=== PATIENT | male | born 2000 | race Caucasian/White ===

== ENCOUNTER 2021-01-27 15:36 | Emergency (ER) | payer SELFPAY ==
[~2021-01-27] VITALS: Ht 172.7 cm; Wt 102.0 kg
[2021-01-27] MEDS ORDERED: IV NORMAL SALINE 1000ML BAG 1,000 ML IV SCH (16:30)
[2021-01-27] MEDS ORDERED: ONDANSETRON PF 4 MG/2 ML VIAL. IVP ONE (16:30)
[2021-01-27 17:06] LABS: BASO # 0.1 x10^3/uL (0.0-0.2); BASO % 1 % (0-3); EOS # 0.1 x10^3/uL (0.0-0.7); EOS % 1 % (0-3); HEMATOCRIT 46.4 % (39.0-53.0); LYMPH % 26 % (24-48); MEAN CORPUSCULAR HEMOGLOBIN 29 pg (25-35); MEAN CORPUSCULAR HGB CONC 35 g/dL (31-37); MEAN CORPUSCULAR VOLUME 84 fL (79-100); MONO # 0.6 x10^3/uL (0.0-1.1); MONO % 8 % (0-9); NEUT % 64 % (31-73); PLATELET COUNT 227 x10^3/uL (140-400); RED BLOOD COUNT 5.55 x10^6/uL (4.30-5.70); RED CELL DISTRIBUTION WIDTH 12.7 % (11.5-14.5); WHITE BLOOD COUNT 7.8 x10^3/uL (4.0-11.0)
--- NOTE | 2021-01-27 17:11 | PHYS DOC ---
Past Medical History Past Medical History: No Pertinent History Past Surgical History: No Surgical History Smoking Status: Never Smoker Alcohol Use: Occasionally General Adult EDM: Chief Complaint: NAUSEA/VOMITING/DIARRHEA HPI: HPI: Patient is a 21 year old male who presents with patient states on January 19 he began feeling lightheaded and overheated and had a syncopal episode. He states he went home and drink some fluid and then went to bed. He states since then he has been able to keep down some fluids but not much food. Patient states since then he will get really hot at the trigger finger and on MR he feels like he is going to pass out. He states that he still feels very nauseated right now. He states he has generalized body weakness. He states at some point he will have some chest pain with shortness of air but it comes and goes. He states he does have anxiety. He states that when all this for started in December he did run a fever of 102 one time. He has not checked since then. Patient states he has not smoked any marijuana for the last 2 months. States he has not drink any alcohol since [facility]. He states that he is having diarrhea stools that are black sludgelike. Patient states he drank some anat lorrie today and has kept it down. Patient states he does not think he has been in around anyone that has been sick. Review of Systems: Review of Systems: Constitutional: + fever or chills. [] Eyes: Denies change in visual acuity. [] HENT: Denies nasal congestion or sore throat. [] Respiratory: Denies cough or + intermittent shortness of breath. [] Cardiovascular: + Intermittent chest pain or edema. [] GI: + abdominal pain, +nausea, +vomiting, denies bloody stools or +black diarrhea. [] : Denies dysuria. [] Musculoskeletal: Denies back pain or joint pain. + Generalized weakness [] Integument: Denies rash. [] Neurologic: Denies headache, focal weakness or sensory changes. + Syncopal episode. + Dizziness [] Endocrine: Denies polyuria or polydipsia. [] Lymphatic: Denies swollen glands. [] Psychiatric: Denies depression or +anxiety. [] Heart Score: C/O Chest Pain: Yes HEART Score for Chest Pain: HEART Score for Chest Pain Response (Comments) Value History Slighlty/Non-Suspicious 0 ECG Normal 0 Age < 45 0 Risk Factors 1 or 2 Risk Factors 1 Troponin < Normal Limit 0 Total 1 Risk Factors: Risk Factors: DM, Current or recent (<one month) smoker, HTN, HLP, family history of CAD, obesity. Risk Scores: Score 0 - 3: 2.5% MACE over next 6 weeks - Discharge Home Score 4 - 6: 20.3% MACE over next 6 weeks - Admit for Clinical Observation Score 7 - 10: 72.7% MACE over next 6 weeks - Early Invasive Strategies Current Medications: Current Medications Medications (Trade) Dose Ordered Sig/Leonie Start Time Stop Time Status Last Admin Dose Admin Ondansetron HCl (Zofran) 4 mg 1X ONCE 01/27/21 16:30 01/27/21 16:31 DC Sodium Chloride 1,000 ml @ 1,000 mls/hr Q1H 01/27/21 16:30 01/27/21 17:29 Allergies: Allergies: Allergies Coded Allergies Type Severity Reaction Last Updated Verified Penicillins Allergy Unknown Swelling 01/27/21 Yes Physical Exam: PE: Constitutional: Well developed, well nourished, no acute distress, non-toxic appearance. [] HENT: Normocephalic, atraumatic, bilateral external ears normal, oropharynx moist, no oral exudates, nose normal. [] Eyes: PERRLA, EOMI, conjunctiva normal, no discharge. [] Neck: Normal range of motion, no tenderness, supple, no stridor. [] Cardiovascular:Heart rate regular rhythm, no murmur [] Lungs & Thorax: Bilateral breath sounds clear to auscultation [] Abdomen: Bowel sounds normal, soft, no tenderness, no masses, no pulsatile ma sses. [] Skin: Warm, dry, no erythema, no rash. [] Back: No tenderness, no CVA tenderness. [] Extremities: No tenderness, no cyanosis, no clubbing, ROM intact, no edema. [] Neurologic: Alert and oriented X 3, normal motor function, normal sensory function, no focal deficits noted. [] Psychologic: Affect normal, judgement normal, mood normal. Normal physical exam [] Current Patient Data: Vital Signs: Vital Signs Date Time Temp Pulse Resp B/P (MAP) Pulse Ox O2 Delivery O2 Flow Rate FiO2 01/27/21 16:15 98.5 81 16 156/86 (109) 98 Room Air 98.5 EKG: EK and read by Dr. Mcintyre as sinus arrhythmia no STEMI Radiology/Procedures: Radiology/Procedures: [] Impression: [facility] [address] [place] [address] IMAGING REPORT Signed PATIENT: DAWNA ADAMSACCOUNT: [id number] : 2000 LOCATION: ER AGE: 21 SEX: M EXAM STATUS: REG ER ORD. PHYSICIAN: ATUL LOAIZA APRN REASON: syncopal episode, dizziness PROCEDURE: CT ANGIO CHEST W ABD PEL W/ Exam: CT of chest, abdomen and pelvis with contrast INDICATION: Syncopal episode, dizziness TECHNIQUE: Sequential axial images through the chest, abdomen and pelvis obtained following the administration of 100 mL of Omni 350 IV contrast. Sagittal and coronal reformatted images were reconstructed from the axial data and reviewed. 3-D reformatted images were reconstructed from the axial data and reviewed. Exposure: One or more of the following in the visualized dose reduction techniques were utilized for this examination: 1. Automated exposure control 2. Adjustment of the MA and/or KV according to patient size 3. Use of iterative of reconstructive technique Comparisons: None FINDINGS: Visualized portions of the thyroid are unremarkable. No enlarged mediastinal lymph nodes are identified. Heart size is normal. No pericardial effusion. Thoracic aorta has a normal course and caliber. Pulmonary artery is not enlarged. No pulmonary embolus identified within the main, lobar or segmental pulmonary arteries. Airways are patent. No consolidation or pneumothorax. No suspicious lung nodules. No pleural effusion or thickening. Mild diffuse hepatic steatosis. Spleen, pancreas, adrenals are unremarkable. Gal lbladder is mildly distended. No perinephric inflammation or hydronephrosis. No renal or ureteral calculi are identified. Bladder is partially distended and appears thin-walled. Prostate is not enlarged. Large and small bowel are unremarkable. Appendix is normal. No free intra- abdominal air or fluid. No obstruction. Abdominal aorta has a normal course and caliber. Abdominal vasculature is patent. No enlarged intra-abdominal lymph nodes are identified. No suspicious osseous lesions or acute fractures. IMPRESSION: 1. No pulmonary embolus identified within the main, lobar or segmental pulmonary arteries. 2. Mild diffuse hepatic steatosis. 3. Gallbladder is mildly distended. Correlate with symptomatology to determine the need for further evaluation with ultrasound. Electronically signed by: Billie Murphy MD (01/27/2021 6:01 PM) [facility] DICTATED and SIGNED BY: BILLIE MURPHY MD DATE: 01/27/21 [id number] [place] [address] IMAGING REPORT Signed PATIENT: DAWNA ADAMSACCOUNT: [id number] : 2000 LOCATION: ER AGE: 21 SEX: M EXAM STATUS: REG ER ORD. PHYSICIAN: ATUL LOAIZA APRN REASON: syncopal episode, dizziness PROCEDURE: CT HEAD WO CONTRAST Exam: CT head INDICATION: Syncopal episode, dizziness TECHNIQUE: Sequential axial images through the head were obtained without the administration of IV contrast. Exposure: One or more of the following in the visualized dose reduction techniques were utilized for this examination: 1. Automated exposure control 2. Adjustment of the MA and/or KV according to patient size 3. Use of iterative of reconstructive technique Comparisons: None FINDINGS: No focal parenchymal lesion or hemorrhage is identified. There is no midline shift or sulcal effacement. No acute vascular territory infarction is identified. Ott-white distinction is preserved. The ventricular system is within normal limits without compression hydrocephalus. The basal cisterns are well maintained. The visualized portions of the paranasal sinuses and mastoid air cells are well- pneumatized. No acute fractures. IMPRESSION: No acute intracranial abnormality. Electronically signed by: Billie Murphy MD (01/27/2021 5:48 PM) [facility] DICTATED and SIGNED BY: BILLIE MURPHY MD DATE: 01/27/21 [id number] [place] [address] IMAGING REPORT Signed PATIENT: DAWNA ADAMSACCOUNT: [id number] : 2000 LOCATION: ER AGE: 21 SEX: M EXAM STATUS: REG ER ORD. PHYSICIAN: ATUL LOAIZA APRN REASON: abnormal gallbladder on ct PROCEDURE: ABDOMEN LTD Ultrasound abdomen 01/27/2021. Reason for exam: CT showed distended gallbladder. The patient has a history of dizziness. Correlation is made with the CT done earlier in the day. FINDINGS: There were limited sonographic windows of the liver. There is increased echogenicity suggesting fatty infiltration. No focal abnormality is seen in the visualized portion. There is no obvious biliary ductal dilatation. Her graft the gallbladder shows moderate distention. No shadowing stones are seen. There may be some sludge. Gallbladder wall thickness is within normal limits. The right kidney shows normal cortical thickness and echogenicity without apparent mass or obstruction. It measures 1.3 cm in length. IMPRESSION: Distended gallbladder without visible stones. There may be some sludge present. Electronically signed by: Dennise Burkett Jr., MD (01/27/2021 7:02 PM) [facility] DICTATED and SIGNED BY: DENNISE BURKETT Jr, MD DATE: 01/27/21 [id number] Course & Med Decision Making: Course & Med Decision Making Pertinent Labs and Imaging studies reviewed. (See chart for details) COVID-19 CRITERIA: The patient was evaluated during the global COVID-19 pandemic, and that diagnosis was suspected/considered upon their initial presentation. Their evaluation, treatment and testing was consistent with current guidelines for patients who present with complaints or symptoms that may be related to COVID-19. See HPI. Alert and oriented x4. Ambulatory with a steady gait. Speaks in full complete sentences. Skin pink warm and dry. Abdomen soft and nontender. Lungs are clear to all station all lobes. Vital signs are within normal limits. Denies any pain at this time. He is nauseated. Denies any dizziness or headache at this time. Patient denies any chest pain or shortness of breath at this time. He states he did have some abdominal pain that felt like a cramping type pain this morning when the water from the shower hit him. IMPRESSION: 1. No pulmonary embolus identified within the main, lobar or segmental pulmonary arteries. 2. Mild diffuse hepatic steatosis. 3. Gallbladder is mildly distended. Correlate with symptomatology to determine the need for further evaluation with ultrasound. IMPRESSION: Distended gallbladder without visible stones. There may be some sludge present. Lab work is generally unremarkable. Patient's ALT is slightly elevated and bili is slightly elevated at 1.2. Patient is keeping fluid down. He has gotten 2 L of normal saline in the ED. Patient will get a consult to general surgery. He remains afebrile and vital signs are stable. He continues not to have any abdominal pain or tenderness. Urine does not show dehydration or infection. I have spoken with Dr Mathur about this patient and he is fine with the patient going home for follow up as out patient. [] Dragon Disclaimer: Dragon Disclaimer: This electronic medical record was generated, in whole or in part, using a voice recognition dictation system. Departure Departure Impression: Primary Impression: Abdominal pain Qualified Codes: R10.84 - Generalized abdominal pain Additional Impressions: Nausea & vomiting Qualified Codes: R11.2 - Nausea with vomiting, unspecified Person under investigation for COVID-19 Disposition: HOME / SELF CARE / HOMELESS Condition: STABLE Referrals: NO PCP (PCP) POLO OLIVAS MD Patient Instructions: Nausea and Vomiting Additional Instructions: Follow-up with your general surgeon soon as possible to have your gallbladder examined. Drink plenty of fluids. Slowly advance your diet. Take Tylenol for any pain. If you begin having severe abdominal pain and cannot keep down any fluids return to emergency room. You have been tested for or diagnosed with COVID-19. It is an infection caused by a new type of coronavirus. COVID-19 will cause cold-like or mild flu symptoms in most. It can cause more severe symptoms like problems breathing in some. There is no treatment for COVID-19. The body will clear the infection over time. Self-care will help to ease discomfort. Steps to Take: Self-Care Rest as needed. Healthy habits may help you feel better. Steps include: Choose healthy foods including fruits and vegetables. Drink water throughout the day. Get plenty of sleep each night. If you smoke, try to quit. It may ease breathing. Avoid alcohol. Keep Others Healthy The virus can spread to others. Droplets are released every time you sneeze or cough. The droplets can get into the mouth, nose, or eyes of people near you and lead to infection. To lower the chances of spreading COVID-19 to others: Stay at home until your doctor has said it is safe to leave. If you tested positive this will mean staying isolated until both of the following are true: At least 7 days have passed since the start of illness. You are free of fever for at least 72 hours without the use of medicine. During this time: - Avoid public areas, events, or transportation. Do not return to work or school until your doctor has said it is safe to do so. - Call ahead if you need to go to a medical center. Let them know you may have COVID-19. It will help them guide you where to go. They may also ask you to wear a facemask when you come to the office. - If you call for emergency medical services, let them know you may have COVID- 19. While at home: - Try to avoid close contact with others. Stay about 6 feet away. - If possible, spend most of your time in a separate room from others. - Use a face mask if you will be in close contact with others such as sharing a room or vehicle. - Have someone wipe down common surfaces in the home. Use household chain offbearer every day on areas like doorknobs, counters, or sinks. - Cough or sneeze into a tissue. Throw the tissue away right after use. If a tissue is not available, cough or sneeze into your elbow. - Wash your hands often. Wash them after sneezing or coughing. Use soap and sohan er and wash for at least 20 seconds. Alcohol based hand machine heddle cleaner can be used if soap and water is not available. - Do not prepare food for others. Avoid sharing personal items like forks, spoons, or toothbrushes. - Avoid close contact with pets while you are sick. There is no evidence of the virus passing to pets. This is a safety step until more is known about this virus. Isolation can be frustrating. Social interaction can help. Keep in touch with friends and family through phone and tech options. You can still interact with others in your home, just keep a safe distance of about 6 feet. Follow-up: Your doctors office will check in with you to see if there are any changes in your health. You may be asked to keep track of symptoms to share with them. They will also let you know when you are clear to be in public again. Problems to Look Out For: Contact your doctor if your recovery is not going as you expect. Get emergency care if you have problems such as: - Trouble breathing - Nonstop chest pain or pressure - Changes in awareness, confusion, or problems waking - Lips or face have bluish color - Worsening of symptoms If you think you have an emergency, call for emergency medical services right away. [facility] [place] Ondansetron (ONDANSETRON ODT) 4 Mg Tab.rapdis 1 TAB PO PRN Q6-8HRS, #16 TAB Prov: ATUL LOAIZA APRN 01/27/21 ATUL LOAIZA APRN January 27, 2021 17:11
[2021-01-27 17:14] LABS: CALCIUM 9.3 mg/dL (8.5-10.1); CREATININE 0.9 mg/dL (0.7-1.3); GFR 105.5; POTASSIUM 3.9 mmol/L (3.5-5.1)
[2021-01-27 17:20] LABS: ALBUMIN 4.7 g/dL (3.4-5.0); ALBUMIN/GLOBULIN RATIO 1.5 (1.0-1.7); TOTAL BILIRUBIN 1.2 mg/dL (0.2-1.0); TOTAL PROTEIN 7.9 g/dL (6.4-8.2)
[2021-01-27] MEDS ORDERED: IOHEXOL 350 MG/ML 100 ML VIAL. IV ONE (17:30)
[2021-01-27] MEDS ORDERED: CONTRAST GIVEN. MC PRN (17:30)
--- NOTE | 2021-01-27 17:50 | RAD ---
Exam: CT head INDICATION: Syncopal episode, dizziness TECHNIQUE: Sequential axial images through the head were obtained without the administration of IV co ntrast. Exposure: One or more of the following in the visualized dose reduction techniques were utilized for this examination: 1. Automated exposure control 2. Adjustment of the MA and/or KV according to patient size 3. Use of iterative of reconstructive technique Comparisons: None FINDINGS: No focal parenchymal lesion or hemorrhage is identified. There is no midline shift or sulcal effaceme nt. No acute vascular territory infarction is identified. Ott-white distinction is preserved. The ventricular system is within normal limits without compression hydrocephalus. The basal cisterns are well maintained. The visualized portions of the paranasal sinuses and mastoid air cells are well-pneumatized. No acute fractures. IMPRESSION: No acute intracranial abnormality. Electronically signed by: Billie Reza MD (01/27/2021 5:48 PM) [facility]
--- NOTE | 2021-01-27 18:04 | RAD ---
Exam: CT of chest, abdomen and pelvis with contrast INDICATION: Syncopal episode, dizziness TECHNIQUE: Sequential axial images through the chest, abdomen and pelvis obtained following the admin istration of 100 mL of Omni 350 IV contrast. Sagittal and coronal reformatted images were reconstruct ed from the axial data and reviewed. 3-D reformatted images were reconstructed from the axial data an d reviewed. Exposure: One or more of the following in the visualized dose reduction techniques were utilized for this examination: 1. Automated exposure control 2. Adjustment of the MA and/or KV according to patient size 3. Use of iterative of reconstructive technique Comparisons: None FINDINGS: Visualized portions of the thyroid are unremarkable. No enlarged mediastinal lymph nodes are identifi ed. Heart size is normal. No pericardial effusion. Thoracic aorta has a normal course and caliber. Pulmon kris artery is not enlarged. No pulmonary embolus identified within the main, lobar or segmental pulmo nary arteries. Airways are patent. No consolidation or pneumothorax. No suspicious lung nodules. No pleural effusion or thickening. Mild diffuse hepatic steatosis. Spleen, pancreas, adrenals are unremarkable. Gallbladder is mildly di stended. No perinephric inflammation or hydronephrosis. No renal or ureteral calculi are identified. Bladder is partially distended and appears thin-walled. Prostate is not enlarged. Large and small bowel are unremarkable. Appendix is normal. No free intra-abdominal air or fluid. No obstruction. Abdominal aorta has a normal course and caliber. Abdominal vasculature is patent. No enlarged intra-abdominal lymph nodes are identified. No suspicious osseous lesions or acute fractures. IMPRESSION: 1. No pulmonary embolus identified within the main, lobar or segmental pulmonary arteries. 2. Mild diffuse hepatic steatosis. 3. Gallbladder is mildly distended. Correlate with symptomatology to determine the need for further evaluation with ultrasound. Electronically signed by: Billie Reza MD (01/27/2021 6:01 PM) [facility]
[2021-01-27 18:46] VITALS: BP 115/56
--- NOTE | 2021-01-27 19:04 | RAD ---
Ultrasound abdomen 01/27/2021. Reason for exam: CT showed distended gallbladder. The patient has a history of dizziness. Correlation is made with the CT done earlier in the day. FINDINGS: There were limited sonographic windows of the liver. There is increased echogenicity sugges ting fatty infiltration. No focal abnormality is seen in the visualized portion. There is no obvious biliary ductal dilatation. Her graft the gallbladder shows moderate distention. No shadowing stones a re seen. There may be some sludge. Gallbladder wall thickness is within normal limits. The right kidney shows normal cortical thickness and echogenicity without apparent mass or obstructio n. It measures 1.3 cm in length. IMPRESSION: Distended gallbladder without visible stones. There may be some sludge present. Electronically signed by: Bharath Burkett Jr., MD (01/27/2021 7:02 PM) [facility]
--- NOTE | 2021-01-27 19:37 | EKG ---
[facility] [address] [place] [address] Test Date: 2021-01-27 Test Time: 17:23:44 Pat Name: DAWNA ADAMS Department: Room: Gender: M Traveling Phlebotomist: : 2000 Requested By: ATUL LOAIZA Order Number: [id number] Reading MD: Measurements Intervals Mcintosh Rate: 78 P: 32 IN: 172 QRS: 38 QRSD: 108 T: 16 QT: 356 QTc: 409 Interpretive Statements SINUS ARRHYTHMIA OTHERWISE NORMAL ECG RI6.02 No previous ECG available for comparison
[2021-01-27] MEDS ORDERED: IV NORMAL SALINE 1000ML BAG 1,000 ML IV ONE (20:15)
[2021-01-27 21:52] LABS: BILIRUBIN,URINE NEGATIVE (NEG); CLARITY,URINE CLEAR; COLOR,URINE YELLOW; NITRITE,URINE NEGATIVE (NEG); PH,URINE 5.5 (<5.0-8.0); PROTEIN,URINE NEGATIVE (NEG-TRACE); UROBILINOGEN,URINE 0.2 mg/dL (0.2 mg/dL)
[2021-01-27 22:03] LABS: BACTERIA,URINE 0 /HPF (0-FEW); RBC,URINE 0 /HPF (0-2); WBC,URINE RARE /HPF (0-4)
[2021-01-27 22:04] LABS: AMPHETAMINE/METHAMPHETAMINE NEG (NEG); BARBITURATES NEG (NEG); BENZODIAZEPINES NEG (NEG); CANNABINOIDS POS (NEG); COCAINE NEG (NEG); METHADONE NEG (NEG); OPIATES NEG (NEG); PHENCYCLIDINE NEG (NEG)
[2021-01-27] MEDS ORDERED: ONDA4TAB12 PO (22:08)
--- NOTE | 2021-01-28 13:27 | NUR ---
IP: Informed pt of negative covid test. Pt verbalized understanding.
== END 2021-01-27 22:33 | disposition home or self-care (01) ==
LOC: ER 15:36
DX: R10.84 Generalized abdominal pain (principal); Z20.822 Contact with and (suspected) exposure to COVID-19; R11.2 Nausea with vomiting, unspecified; Z88.0 Allergy status to penicillin
CPT/HCPCS: 36415; 70450; 71275; 74177; 76705; 80053; 80307; 81001; 83690; 84484; 85025; 85379; 93005; 96361; 96374; 99285; J2405; J7030; Q9967; U0003; U0005

== ENCOUNTER 2021-10-29 22:14 | Inpatient (IN) | payer SELFPAY ==
[~2021-10-29] VITALS: Ht 172.7 cm; Wt 98.0 kg
[~2021-10-29 22:14] MED LIST: ONDA4TAB12 PO
[2021-10-29] MEDS ORDERED: fentaNYL PF VIAL 100 MCG/2 ML VIAL IVP ONE (23:45)
[2021-10-29] MEDS ORDERED: IV NORMAL SALINE 1000ML BAG 1,000 ML IV ONE (23:45)
[2021-10-29] MEDS ORDERED: ONDANSETRON PF 4 MG/2 ML VIAL. IVP ONE (23:45)
--- NOTE | 2021-10-30 00:03 | RAD ---
EXAM: ULTRASOUND ABDOMEN LIMITED CLINICAL HISTORY: Right upper quadrant abdominal pain. Vomiting. COMPARISON: Abdomen ultrasound dated 11/17/2020 Findings: Bowel gas shadowing limits visualization of most of the pancreas, aorta and IVC. Increased liver echogenicity most likely representing advanced steatosis. Limited visualization of up per segments of the liver due to rib shadowing. No liver mass documented. Right hepatic lobe length i s 16.7 cm upper limits of normal. No gallstones or inflammatory changes of the gallbladder. There may be some mild layering gallbladder sludge. Prominent distention of the gallbladder diameter of 4.5 cm . No biliary ductal dilation. The common bile duct diameter is 5 mm which is normal. Right renal length 10.6 cm. No mass or hydronephrosis of the right kidney evident. Spleen and left ki dney were not evaluated. IMPRESSION: 1. Prominent distention of the gallbladder and mild sludge within the gallbladder. No gallstones evid ent. No inflammatory changes of the gallbladder evident. 2. No biliary ductal dilatation. 3. Increased liver echogenicity likely representing steatosis. Electronically signed by: Juice Larson MD (10/30/2021 12:00 AM) [facility]
[2021-10-30 00:25] LABS: BASO % 0 % (0-3); EOS % 0 % (0-3); HEMOGLOBIN 17.4 g/dL (13.0-17.5); LYMPH # 0.5 x10^3/uL (1.0-4.8); LYMPH % 4 % (24-48); MEAN CORPUSCULAR HEMOGLOBIN 29 pg (25-35); MEAN CORPUSCULAR HGB CONC 35 g/dL (31-37); MEAN CORPUSCULAR VOLUME 84 fL (79-100); MONO # 0.7 x10^3/uL (0.0-1.1); MONO % 5 % (0-9); NEUT # 12.7 x10^3/uL (1.8-7.7); NEUT % 91 % (31-73); PLATELET COUNT 236 x10^3/uL (140-400); RED BLOOD COUNT 5.97 x10^6/uL (4.30-5.70); RED CELL DISTRIBUTION WIDTH 13.2 % (11.5-14.5)
--- NOTE | 2021-10-30 00:31 | PHYS DOC ---
Past Medical History Past Medical History: No Pertinent History (ANTONLEDA LANCE CONSUMER AFFAIRS SPECIALIST) Past Surgical History: No Surgical History (LEDA BASS CONSUMER AFFAIRS SPECIALIST) Smoking Status: Never Smoker Alcohol Use: Heavy (EBONIELEDA Leos CONSUMER AFFAIRS SPECIALIST) General Adult EDM: Chief Complaint: ABDOMINAL PAIN HPI: HPI: Patient is a 21 year old male patient with history of gallbladder sludge diagnosed one year ago presenting today complaining of a sharp 23/10 right upper quadrant abdominal pain with nausea and vomiting, symptoms have been going on intermittently since this morning. Patient denies anything relieving the pain but states eating food makes pain worse, he states he has been trying to get help for this gallbladder sludge but he has no medical insurance and is unable to see any doctors. (EBONIELEDA Leos CONSUMER AFFAIRS SPECIALIST) Review of Systems: Review of Systems: Constitutional: Denies fever or chills. [] Eyes: Denies change in visual acuity. [] HENT: Denies nasal congestion or sore throat. [] Respiratory: Denies cough or shortness of breath. [] Cardiovascular: Denies chest pain or edema. [] GI: Reports right upper quadrant abdominal pain with nausea and vomiting, denies bloody stools or diarrhea. [] : Denies dysuria. [] Musculoskeletal: Denies back pain or joint pain. [] Integument: Denies rash. [] Neurologic: Denies headache, focal weakness or sensory changes. [] Psychiatric: Denies depression or anxiety. [] (LEDA BASS CONSUMER AFFAIRS SPECIALIST) Heart Score: C/O Chest Pain: N/A Risk Factors: Risk Factors: DM, Current or recent (<one month) smoker, HTN, HLP, family history of CAD, obesity. Risk Scores: Score 0 - 3: 2.5% MACE over next 6 weeks - Discharge Home Score 4 - 6: 20.3% MACE over next 6 weeks - Admit for Clinical Observation Score 7 - 10: 72.7% MACE over next 6 weeks - Early Invasive Strategies (LEDA BASS CONSUMER AFFAIRS SPECIALIST) Current Medications: Current Medications Medications (Trade) Dose Ordered Sig/Leonie Start Time Stop Time Status Last Admin Dose Admin Fentanyl Citrate (Fentanyl 2ml Vial) 50 mcg 1X ONCE 10/29/21 23:45 10/29/21 23:46 DC Ondansetron HCl (Zofran) 4 mg 1X ONCE 10/29/21 23:45 10/29/21 23:46 DC Sodium Chloride 1,000 ml @ 1,000 mls/hr 1X ONCE 10/29/21 23:45 10/30/21 00:44 (LEDA BASS CONSUMER AFFAIRS SPECIALIST) Allergies: Allergies: Allergies Coded Allergies Type Severity Reaction Last Updated Verified Penicillins Allergy Severe Swelling 10/29/21 Yes (LEDA BASS APRN) Physical Exam: PE: Constitutional: Well developed, well nourished, no acute distress, non-toxic appearance. [] HENT: Normocephalic, atraumatic, bilateral external ears normal, oropharynx moist, no oral exudates, nose normal. [] Eyes: PERRLA, EOMI, conjunctiva normal, no discharge. [] Neck: Normal range of motion, no tenderness, supple, no stridor. [] Cardiovascular:Heart rate regular rhythm, no murmur [] Lungs & Thorax: Bilateral breath sounds clear to auscultation [] Abdomen: Bowel sounds normal, soft, tenderness on palpation of the right upper quadrant with positive Chambers sign, no masses, no pulsatile masses. [] Skin: Warm, dry, no erythema, no rash. [] Back: No tenderness, no CVA tenderness. [] Extremities: No tenderness, no cyanosis, no clubbing, ROM intact, no edema. [] Neurologic: Alert and oriented X 3, normal motor function, normal sensory function, no focal deficits noted. [] Psychologic: Affect normal, judgement normal, mood normal. [] (LEDA BASS CONSUMER AFFAIRS SPECIALIST) Current Patient Data: Vital Signs: Vital Signs Date Time Temp Pulse Resp B/P (MAP) Pulse Ox O2 Delivery O2 Flow Rate FiO2 10/29/21 23:20 98.9 144 16 174/83 (113) 94 Room Air 98.9 (LEDA BASS CONSUMER AFFAIRS SPECIALIST) EKG: EKG: [] (LEDA BASS CONSUMER AFFAIRS SPECIALIST) Radiology/Procedures: Radiology/Procedures: []PROCEDURE: ABDOMEN LTD EXAM: ULTRASOUND ABDOMEN LIMITED CLINICAL HISTORY: Right upper quadrant abdominal pain. Vomiting. COMPARISON: Abdomen ultrasound dated 11/17/2020 Findings: Bowel gas shadowing limits visualization of most of the pancreas, aorta and IVC. Increased liver echogenicity most likely representing advanced steatosis. Limited visualization of upper segments of the liver due to rib shadowing. No liver mass documented. Right hepatic lobe length is 16.7 cm upper limits of normal. No gallstones or inflammatory changes of the gallbladder. There may be some mild layering gallbladder sludge. Prominent distention of the gallbladder diameter of 4.5 cm. No biliary ductal dilation. The common bile duct diameter is 5 mm which is normal. Right renal length 10.6 cm. No mass or hydronephrosis of the right kidney evident. Spleen and left kidney were not evaluated. IMPRESSION: 1. Prominent distention of the gallbladder and mild sludge within the gallbladder. No gallstones evident. No inflammatory changes of the gallbladder evident. 2. No biliary ductal dilatation. 3. Increased liver echogenicity likely representing steatosis. Electronically signed by: Maia Grider MD (10/30/2021 12:00 AM) [facility] [place] DICTATED and SIGNED BY: MAIA GRIDER MD DATE: 10/29/21 [id number] (LEDA BASS APRN) Course & Med Decision Making: Course & Med Decision Making Pertinent Labs and Imaging studies reviewed. (See chart for details) This is a 22-year-old male patient presented to the ED today complaining of right upper quadrant abdominal pain with nausea and vomiting, symptoms have been going on intermittently since this morning. Right upper quadrant ultrasound noted for prominent distention of the gallbladder and mild sludge within the gallbladder. No gallstones evident. No inflammatory changes of the gallbladder evident. No biliary ductal dilatation. Fatty liver. CBC with a WBC of 14.0. CMP with no acute findings. Dr. Domingo spoke to Dr. Attila Liu tx to Dr. Domingo (LEDA BASS APRN) Course & Med Decision Making I evaluated this patient with LUIS E Ang. Patient a 21-year-old male with history of previous study showing gallbladder sludge who presented with progressive right upper quadrant pain that is exacerbated by food intake. Pain became constant shortly before coming to the emergency department. Was initially tachycardic to the 140s, but has been afebrile. LFTs unremarkable. WBC 14 K. Ultrasound shows a largely dilated gallbladder with biliary sludge, without other findings of acute cholecystitis. On my exam he continues to have focal right upper quadrant pain after IV analgesia. Bedside ultrasound revealed a positive sonographic Chambers's. Given his constant pain, ultrasound findings, leukocytosis I am concerned that this may represent early cholecystitis versus severe biliary colic. I discussed the findings with Dr. Aiken, who suggested admission to the hospital service. Surgical consultation will take place in the morning. (GILA DOMINGO MD) Dragon Disclaimer: Dragon Disclaimer: This electronic medical record was generated, in whole or in part, using a voice recognition dictation system. (LEDA BASS APRN) Departure Departure Impression: Primary Impression: Right upper quadrant abdominal pain Additional Impressions: Gallbladder sludge Nausea and vomiting Qualified Codes: R11.2 - Nausea with vomiting, unspecified Disposition: ADMITTED INPATIENT Condition: STABLE Referrals: NO PCP (PCP) LEDA BASS APRN Oct 30, 2021 00:31 GILA DOMINGO MD Oct 30, 2021 03:23
[2021-10-30 00:35] LABS: CALCIUM 9.5 mg/dL (8.5-10.1); CREATININE 1.1 mg/dL (0.7-1.3); GFR 83.7; POTASSIUM 4.9 mmol/L (3.5-5.1)
[2021-10-30 00:41] LABS: ALBUMIN 4.4 g/dL (3.4-5.0); TOTAL BILIRUBIN 1.1 mg/dL (0.2-1.0); TOTAL PROTEIN 8.8 g/dL (6.4-8.2)
[2021-10-30 00:57] LABS: % BANDS 3 % (0-9); % LYMPHS 6 % (24-48); % MONOS 4 % (0-10); % SEGS 87 % (35-66); PLT ESTIMATE ADEQUATE (ADEQUATE); TOXIC VACUOLATION SLIGHT
[2021-10-30] MEDS ORDERED: ONDANSETRON PF 4 MG/2 ML VIAL. IVP PRN (01:15)
[2021-10-30] MEDS ORDERED: fentaNYL PF VIAL 100 MCG/2 ML VIAL IVP PRN (01:15)
[2021-10-30] MEDS ORDERED: MORPHINE SULFATE 4 MG/ML INJ. IVP PRN (01:30)
[2021-10-30] MEDS ORDERED: IV NORMAL SALINE 1000ML BAG 1,000 ML IV ONE ×2 (01:30→02:30)
[2021-10-30] MEDS: cefOXitin SODIUM IV Push 1 GM VIAL. IVP SCH ×4 (01:30→22:00)
[2021-10-30 04:00] VITALS: BP 144/63
[2021-10-30 07:00] VITALS: BP 138/70
[2021-10-30 08:35] LABS: BILIRUBIN,URINE NEGATIVE (NEG); CLARITY,URINE CLEAR; COLOR,URINE YELLOW; NITRITE,URINE NEGATIVE (NEG); PH,URINE 5.5 (<5.0-8.0); PROTEIN,URINE 30 mg/dL (NEG-TRACE); UROBILINOGEN,URINE 0.2 mg/dL (0.2 mg/dL)
[2021-10-30 08:43] LABS: AMPHETAMINE/METHAMPHETAMINE NEG (NEG); BARBITURATES NEG (NEG); BENZODIAZEPINES NEG (NEG); CANNABINOIDS NEG (NEG); COCAINE NEG (NEG); METHADONE NEG (NEG); OPIATES POS (NEG); PHENCYCLIDINE NEG (NEG)
[2021-10-30 08:45] LABS: BACTERIA,URINE FEW /HPF (0-FEW); RBC,URINE OCC /HPF (0-2); WBC,URINE OCC /HPF (0-4)
[2021-10-30] MEDS ORDERED: FLU VACC QUAD 21-22 (6MOS+) PF 0.5 ML SYRINGE. VAX IM ONE (09:00)
--- NOTE | 2021-10-30 12:20 | HP ---
DATE OF SERVICE: 10/30/2021 ADMIT DATE: 10/30/2021 CHIEF COMPLAINT: Abdominal pain. HISTORY OF PRESENT ILLNESS: The patient is a pleasant 21-year-old male who had abdominal pain for the past year. He apparently got diagnosed with gallbladder sludge, a year ago. The pain is rated as 7/10, it is in the right upper quadrant. I discussed the case with ER physician and we have admitted the patient. We are consulting GI and General Surgery. PAST MEDICAL HISTORY: Gallbladder sludge. ALLERGIES: PENICILLIN. FAMILY HISTORY: Diabetes. SOCIAL HISTORY: He does not drink, smoke or take drugs. He works at [employer]. MEDICATIONS: Reviewed. Please refer to the MRAD. REVIEW OF SYSTEMS: GENERAL: No history of weight change, weakness or fevers. SKIN: No bruising, hair changes or rashes. EYES: No blurred, double or loss of vision. NOSE AND THROAT: No history of nosebleeds, hoarseness or sore throat. HEART: No history of palpitations, chest pain or shortness of breath on exertion. LUNGS: Denies cough, hemoptysis, wheezing or shortness of breath. GASTROINTESTINAL: Denies changes in appetite, nausea, vomiting, diarrhea or constipation. GENITOURINARY: No history of frequency, urgency, hesitancy or nocturia. NEUROLOGIC: Denies history of numbness, tingling, tremor or weakness. PSYCHIATRIC: No history of panic, anxiety or depression. ENDOCRINE: No history of heat or cold intolerance, polyuria or polydipsia. EXTREMITIES: Denies muscle weakness, joint pain, pain on walking or stiffness. PHYSICAL EXAMINATION: VITALS: Within normal limits and are stable. GENERAL: No apparent distress. Alert and oriented. HEENT: Normal cephalic atraumatic, external auditory canals are patent EYES: Extraocular muscles are intact, pupils are equally round and reactive to light and accommodation MUSCULOSKELETAL: Well developed, well nourished, good range of motion ENDOCRINE: No thyromegaly was palpated LYMPHATICS: No cervical chain or axillary nodes were noted HEMATOPOIETIC: No bruising NECK: Supple, no JVD, no thyromegaly was noted. LUNGS: Clear to auscultation in all lung ray without rhonchi or wheezing. HEART: RRR, S1, S2 present. Peripheral pulses intact, no obvious murmurs were noted. ABDOMEN: Soft, nontender. Positive bowel sounds no organomegaly, normal bowel sounds. EXTREMITIES: Without any cyanosis, clubbing, or edema. Pedal pulses intact, Homans sign is negative. NEUROLOGIC: Normal speech, normal tone. A and O x 3, moves all extremities, no obvious focal deficits. PSYCHIATRIC: Normal affect, normal mood. Stable. SKIN: No ulcerations or rashes, good skin turgor, no jaundice. VASCULAR: Good capillary refill, neurovascular bundle appears to be intact. LABORATORY DATA: Liver function tests are normal. White count is a little high at 14. ASSESSMENT AND PLAN: Symptomatic gallbladder sludge. The patient has been admitted. We are giving him IV fluids, p.r.n. nausea meds. Consult General Surgery, consult GI. Home meds. DVT prophylaxis. Full code. SOCO/MIC/MARTI DR: SOCO/aayush TID: [id number]
--- NOTE | 2021-10-30 13:04 | RAD ---
Hepatobiliary scan. HISTORY: Distended gallbladder. A biliary scan was done using 5.5 mCi Choletec. Initial image of the liver is unremarkable. Gallbladd er activity is noted by 10 minutes. Following the 60 minute image the patient drank 8 ounces of boost . Further follow-up imaging was obtained. There was a 38 percent ejection fraction by 1 hour. IMPRESSION: 1. Normal visualization the gallbladder. 2. Low normal ejection fraction at 38 percent. Electronically signed by: Armando Caputo MD (10/30/2021 1:01 PM) [id number]
--- NOTE | 2021-10-30 14:22 | NUR ---
SW following. Discussed with RN, pt from home with family, room air, NPO, rapid COVID-19 negative (PCR pending). GI and Surgery following. Med Assist following for self pay status. SW will continue to follow.
[2021-10-30 15:00] VITALS: BP 122/60
[2021-10-30] MEDS: AA 4.25 %/CALCIUM/LYTES/D5W 1,000 ML IV SCH (16:43)
[2021-10-30 19:00] VITALS: BP 116/64
--- NOTE | 2021-10-30 20:31 | PDOC2 ---
CONSULT Date of Consult Date of Consult DATE: 10/30/21 TIME: 20:23 Reason for Consult Reason for Consult: RUQ abd pain Referring Physician Referring Physician: Dr. Woo Identification/Chief Complaint Chief Complaint RUQ abd pain Source Source: Chart review, Patient History of Present Illness Reason for Visit: 21 yo M with one year hx of RUQ abd pain, denies significant nausea. Notes loose stools. Past Medical History Cardiovascular: No pertinent hx Past Surgical History Past Surgical History: No pertinent history Family History Family History: No Significant Social History No ALCOHOL: heavy (pt reports quitting a week ago, reports multiple units per day) Current Problem List Problem List Problems Medical Problems: (1) Gallbladder sludge Status: Acute (2) Nausea and vomiting Status: Acute (3) Right upper quadrant abdominal pain Status: Acute Current Medications Current Medications Current Medications Fentanyl Citrate (Fentanyl 2ml Vial) 50 mcg 1X ONCE IVP Last administered on 10/30/21at 00:28; Start 10/29/21 at 23:45; Stop 10/29/21 at 23:46; Status DC Ondansetron HCl (Zofran) 4 mg 1X ONCE IVP Last administered on 10/30/21at 00:28; Start 10/29/21 at 23:45; Stop 10/29/21 at 23:46; Status DC Sodium Chloride 1,000 ml @ 1,000 mls/hr 1X ONCE IV Last administered on 10/30/21at 00:29; Start 10/29/21 at 23:45; Stop 10/30/21 at 00:44; Status DC Cefoxitin Sodium (Mefoxin) 1 gm Q8HRS IVP Last administered on 10/30/21at 13:46; Start 10/30/21 at 01:30 Morphine Sulfate (Morphine Sulfate) 4 mg PRN Q4HRS PRN IVP SEVERE PAIN 7-10 Last administered on 10/30/21at 04:32; Start 10/30/21 at 01:30 Ondansetron HCl (Zofran) 4 mg PRN Q4HRS PRN IVP NAUSEA/VOMITING 1ST CHOICE; Start 10/30/21 at 01:15 Sodium Chloride 1,000 ml @ 100 mls/hr 1X ONCE IV Last administered on 10/30/21at 01:30; Start 10/30/21 at 01:30; Stop 10/30/21 at 11:29; Status DC Fentanyl Citrate (Fentanyl 2ml Vial) 50 mcg PRN Q1HR PRN IVP SEVERE PAIN 7-10; Start 10/30/21 at 01:15; Stop 10/31/21 at 01:14 Sodium Chloride 1,000 ml @ 125 mls/hr 1X ONCE IV ; Start 10/30/21 at 02:30; Stop 10/30/21 at 10:29; Status DC Influenza Virus Vaccine Quadrival (Flulaval Quad [id number] Syringe) 0.5 ml ONCE ONCE VAX IM ; Start 10/30/21 at 09:00; Stop 10/30/21 at 09:01; Status DC Amino Acids/ Electrolytes/ Dextrose 1,000 ml @ 70 mls/hr [id number] IV Last administered on 10/30/21at 16:43; Start 10/30/21 at 17:30 Active Scripts Active Ondansetron Odt (Ondansetron) 4 Mg Tab.rapdis 1 Tab PO PRN Q6-8HRS Allergies Allergies: Coded Allergies: Penicillins (Verified Allergy, Severe, Swelling, 10/29/21) ROS Gastrointestinal: Yes Abdominal Pain, Yes Diarrhea Physical Exam General: Alert, Oriented X3, Cooperative, mild distress HEENT: Atraumatic Lungs: Normal air movement Abdomen: Soft, Other (TTP RUQ) Extremities: No clubbing, No cyanosis Skin: No rashes, No breakdown Neuro: Normal speech, Sensation intact Psych/Mental Status: Mental status NL, Mood NL Vitals VITALS Vital Signs Date Time Temp Pulse Resp B/P (MAP) Pulse Ox O2 Delivery O2 Flow Rate FiO2 10/30/21 15:00 98.4 97 20 122/60 (80) 98 Room Air 98.4 Labs Labs Laboratory Tests Test 10/30/21 00:20 10/30/21 05:40 10/30/21 08:15 10/30/21 09:30 White Blood Count 14.0 x10^3/uL (4.0-11.0) Red Blood Count 5.97 x10^6/uL (4.30-5.70) Hemoglobin 17.4 g/dL (13.0-17.5) Hematocrit 50.0 % (39.0-53.0) Mean Corpuscular Volume 84 fL (79-100) Mean Corpuscular Hemoglobin 29 pg (25-35) Mean Corpuscular Hemoglobin Concent 35 g/dL (31-37) Red Cell Distribution Width 13.2 % (11.5-14.5) Platelet Count 236 x10^3/uL (140-400) Neutrophils (%) (Auto) 91 % (31-73) Lymphocytes (%) (Auto) 4 % (24-48) Monocytes (%) (Auto) 5 % (0-9) Eosinophils (%) (Auto) 0 % (0-3) Basophils (%) (Auto) 0 % (0-3) Neutrophils # (Auto) 12.7 x10^3/uL (1.8-7.7) Lymphocytes # (Auto) 0.5 x10^3/uL (1.0-4.8) Monocytes # (Auto) 0.7 x10^3/uL (0.0-1.1) Eosinophils # (Auto) 0.0 x10^3/uL (0.0-0.7) Basophils # (Auto) 0.0 x10^3/uL (0.0-0.2) Segmented Neutrophils % 87 % (35-66) Band Neutrophils % 3 % (0-9) Lymphocytes % 6 % (24-48) Monocytes % 4 % (0-10) Toxic Vacuolation Slight Platelet Estimate Adequate (ADEQUATE) Sodium Level 143 mmol/L (136-145) Potassium Level 4.9 mmol/L (3.5-5.1) Chloride Level 103 mmol/L (98-107) Carbon Dioxide Level 26 mmol/L (21-32) Anion Gap 14 (6-14) Blood Urea Nitrogen 15 mg/dL (8-26) Creatinine 1.1 mg/dL (0.7-1.3) Estimated GFR (Cockcroft-Gault) 83.7 BUN/Creatinine Ratio 14 (6-20) Glucose Level 120 mg/dL (70-99) Calcium Level 9.5 mg/dL (8.5-10.1) Total Bilirubin 1.1 mg/dL (0.2-1.0) Aspartate Amino Transf (AST/SGOT) 20 U/L (15-37) Alanine Aminotransferase (ALT/SGPT) 55 U/L (16-63) Alkaline Phosphatase 71 U/L (46-116) Total Protein 8.8 g/dL (6.4-8.2) Albumin 4.4 g/dL (3.4-5.0) Albumin/Globulin Ratio 1.0 (1.0-1.7) Lipase 70 U/L (73-393) Ethyl Alcohol Level < 10 mg/dL (0-10) Lactic Acid Level 2.4 mmol/L (0.4-2.0) Urine Collection Type Unknown Urine Color Yellow Urine Clarity Clear Urine pH 5.5 (<5.0-8.0) Urine Specific Divide >=1.030 (1.000-1.030) Urine Protein 30 mg/dL (NEG-TRACE) Urine Glucose (UA) Negative mg/dL (NEG) Urine Ketones (Stick) Trace mg/dL (NEG) Urine Blood Negative (NEG) Urine Nitrite Negative (NEG) Urine Bilirubin Negative (NEG) Urine Urobilinogen Dipstick 0.2 mg/dL (0.2 mg/dL) Urine Leukocyte Esterase Negative (NEG) Urine RBC Occ /HPF (0-2) Urine WBC Occ /HPF (0-4) Urine Squamous Epithelial Cells Few /LPF Urine Bacteria Few /HPF (0-FEW) Urine Opiates Screen Pos (NEG) Urine Methadone Screen Neg (NEG) Urine Barbiturates Neg (NEG) Urine Phencyclidine Screen Neg (NEG) Urine Amphetamine/Methamphetamine Neg (NEG) Urine Benzodiazepines Screen Neg (NEG) Urine Cocaine Screen Neg (NEG) Urine Cannabinoids Screen Neg (NEG) Urine Ethyl Alcohol Neg (NEG) SARS-CoV-2 RNA (NEHEMIAH) Negative (Negative) SARS-CoV-2 Antigen (Rapid) Negative (NEGATIVE) Test 10/30/21 13:10 Lactic Acid Level 1.7 mmol/L (0.4-2.0) Laboratory Tests Test 10/30/21 00:20 10/30/21 05:40 10/30/21 08:15 10/30/21 09:30 White Blood Count 14.0 x10^3/uL (4.0-11.0) Red Blood Count 5.97 x10^6/uL (4.30-5.70) Hemoglobin 17.4 g/dL (13.0-17.5) Hematocrit 50.0 % (39.0-53.0) Mean Corpuscular Volume 84 fL (79-100) Mean Corpuscular Hemoglobin 29 pg (25-35) Mean Corpuscular Hemoglobin Concent 35 g/dL (31-37) Red Cell Distribution Width 13.2 % (11.5-14.5) Platelet Count 236 x10^3/uL (140-400) Neutrophils (%) (Auto) 91 % (31-73) Lymphocytes (%) (Auto) 4 % (24-48) Monocytes (%) (Auto) 5 % (0-9) Eosinophils (%) (Auto) 0 % (0-3) Basophils (%) (Auto) 0 % (0-3) Neutrophils # (Auto) 12.7 x10^3/uL (1.8-7.7) Lymphocytes # (Auto) 0.5 x10^3/uL (1.0-4.8) Monocytes # (Auto) 0.7 x10^3/uL (0.0-1.1) Eosinophils # (Auto) 0.0 x10^3/uL (0.0-0.7) Basophils # (Auto) 0.0 x10^3/uL (0.0-0.2) Segmented Neutrophils % 87 % (35-66) Band Neutrophils % 3 % (0-9) Lymphocytes % 6 % (24-48) Monocytes % 4 % (0-10) Toxic Vacuolation Slight Platelet Estimate Adequate (ADEQUATE) Sodium Level 143 mmol/L (136-145) Potassium Level 4.9 mmol/L (3.5-5.1) Chloride Level 103 mmol/L (98-107) Carbon Dioxide Level 26 mmol/L (21-32) Anion Gap 14 (6-14) Blood Urea Nitrogen 15 mg/dL (8-26) Creatinine 1.1 mg/dL (0.7-1.3) Estimated GFR (Cockcroft-Gault) 83.7 BUN/Creatinine Ratio 14 (6-20) Glucose Level 120 mg/dL (70-99) Calcium Level 9.5 mg/dL (8.5-10.1) Total Bilirubin 1.1 mg/dL (0.2-1.0) Aspartate Amino Transf (AST/SGOT) 20 U/L (15-37) Alanine Aminotransferase (ALT/SGPT) 55 U/L (16-63) Alkaline Phosphatase 71 U/L (46-116) Total Protein 8.8 g/dL (6.4-8.2) Albumin 4.4 g/dL (3.4-5.0) Albumin/Globulin Ratio 1.0 (1.0-1.7) Lipase 70 U/L (73-393) Ethyl Alcohol Level < 10 mg/dL (0-10) Lactic Acid Level 2.4 mmol/L (0.4-2.0) Urine Collection Type Unknown Urine Color Yellow Urine Clarity Clear Urine pH 5.5 (<5.0-8.0) Urine Specific Divide >=1.030 (1.000-1.030) Urine Protein 30 mg/dL (NEG-TRACE) Urine Glucose (UA) Negative mg/dL (NEG) Urine Ketones (Stick) Trace mg/dL (NEG) Urine Blood Negative (NEG) Urine Nitrite Negative (NEG) Urine Bilirubin Negative (NEG) Urine Urobilinogen Dipstick 0.2 mg/dL (0.2 mg/dL) Urine Leukocyte Esterase Negative (NEG) Urine RBC Occ /HPF (0-2) Urine WBC Occ /HPF (0-4) Urine Squamous Epithelial Cells Few /LPF Urine Bacteria Few /HPF (0-FEW) Urine Opiates Screen Pos (NEG) Urine Methadone Screen Neg (NEG) Urine Barbiturates Neg (NEG) Urine Phencyclidine Screen Neg (NEG) Urine Amphetamine/Methamphetamine Neg (NEG) Urine Benzodiazepines Screen Neg (NEG) Urine Cocaine Screen Neg (NEG) Urine Cannabinoids Screen Neg (NEG) Urine Ethyl Alcohol Neg (NEG) SARS-CoV-2 RNA (NEHEMIAH) Negative (Negative) SARS-CoV-2 Antigen (Rapid) Negative (NEGATIVE) Test 10/30/21 13:10 Lactic Acid Level 1.7 mmol/L (0.4-2.0) Images Images gallbladder distention and sludge Assessment/Plan Assessment/Plan cholecystitis pt appears improved with hydration and supportive care. significant tachycardia and elevated lactic acid inconsistent with biliary sludge alone concern for significant liver disease, given heavy etoh would favor etoh cessation prior to cholecystectomy will ask GI to evaluation. Thanks for consult! VERONICA FLORES MD Oct 30, 2021 20:31
[2021-10-30 23:00] VITALS: BP 123/63
[2021-10-31 03:00] VITALS: BP 127/75
[2021-10-31] MEDS: cefOXitin SODIUM IV Push 1 GM VIAL. IVP SCH ×2 (06:31→13:51)
[2021-10-31 07:00] VITALS: BP 138/72
[2021-10-31] MEDS: AA 4.25 %/CALCIUM/LYTES/D5W 1,000 ML IV SCH (07:23)
[2021-10-31 08:35] LABS: BASO % 1 % (0-3); EOS # 0.1 x10^3/uL (0.0-0.7); EOS % 3 % (0-3); HEMATOCRIT 44.4 % (39.0-53.0); HEMOGLOBIN 15.3 g/dL (13.0-17.5); LYMPH # 1.8 x10^3/uL (1.0-4.8); LYMPH % 33 % (24-48); MEAN CORPUSCULAR HEMOGLOBIN 29 pg (25-35); MEAN CORPUSCULAR HGB CONC 34 g/dL (31-37); MEAN CORPUSCULAR VOLUME 86 fL (79-100); MONO # 0.7 x10^3/uL (0.0-1.1); MONO % 13 % (0-9); NEUT # 2.8 x10^3/uL (1.8-7.7); NEUT % 52 % (31-73); PLATELET COUNT 199 x10^3/uL (140-400); RED BLOOD COUNT 5.19 x10^6/uL (4.30-5.70); WHITE BLOOD COUNT 5.5 x10^3/uL (4.0-11.0)
[2021-10-31 08:42] LABS: ALBUMIN 3.7 g/dL (3.4-5.0); ALBUMIN/GLOBULIN RATIO 0.9 (1.0-1.7); CALCIUM 8.9 mg/dL (8.5-10.1); CREATININE 0.8 mg/dL (0.7-1.3); GFR 120.9; POTASSIUM 3.6 mmol/L (3.5-5.1); TOTAL BILIRUBIN 0.7 mg/dL (0.2-1.0); TOTAL PROTEIN 7.7 g/dL (6.4-8.2)
--- NOTE | 2021-10-31 09:28 | PDOC2 ---
EDMUND MON 10/31/21 0928: GI CONSULT Date of Service: DATE: 10/31/21 TIME: 09:28 Reason For Consult: abdominal pain HPI: HPI: 21 y/o male w/ upper abdominal pain ("just pain") x 1.5 years intermittently. Worse x 2 months this time, and really bad after eating canned ravioli on Thursday - constant since then. Says was told in the past to see a surgeon re: GB sludge which he didn't do because he had to walk everywhere and no one would help him out. At first difficult to discern aggravating or alleviating factors, but eventually mentions lost 30 pounds in July because he "couldn't eat" due to pain. Since has been able to eat and has gained 16 pounds. Imaging as below w/ GB distention, GB sludge, GB EF 38%, and likely hepatic steatosis. Surgery saw, concern for liver disease w/ alcohol history, favors cholecystectomy after alcohol cessation. H/o heartburn, untreated - he also says he knows this isn't heartburn pain. No dysphagia, hematemesis, hematochezia, melena, or constipation. No previous EGD or colonoscopy. Gives h/o "non-alcoholic fatty liver disease." Denies pancreas and PUD history. Was drinking 1-2 "glasses" of liquor daily til about 1 week ago. LFTs and plt normal. PMH: PMH: depression/anxiety FH: Family History: Other (doesn't really know about family history) Social History: Smoke: No ALCOHOL: heavy (pt reports quitting a week ago, reports multiple units per day) ROS: GEN: Denies fevers, chills, sweats HEENT: Denies blurred vision, sore throat CV: Denies chest pain RESP: Denies shortness of air, cough GI: Per HPI : Denies hematuria, dysuria ENDO: +fluctuating NEURO: Denies confusion, dizziness MSK: Denies weakness, joint pain/swelling SKIN: Denies jaundice, pruritus Vitals: Vitals: Vital Signs Date Time Temp Pulse Resp B/P (MAP) Pulse Ox O2 Delivery O2 Flow Rate FiO2 10/31/21 07:25 Room Air 10/31/21 07:00 99.0 73 16 138/72 (94) 95 99.0 Labs: Labs: Laboratory Tests Test 10/30/21 09:30 10/30/21 13:10 10/31/21 06:35 SARS-CoV-2 RNA (NEHEMIAH) Negative (Negative) SARS-CoV-2 Antigen (Rapid) Negative (NEGATIVE) Lactic Acid Level 1.7 mmol/L (0.4-2.0) White Blood Count 5.5 x10^3/uL (4.0-11.0) Red Blood Count 5.19 x10^6/uL (4.30-5.70) Hemoglobin 15.3 g/dL (13.0-17.5) Hematocrit 44.4 % (39.0-53.0) Mean Corpuscular Volume 86 fL (79-100) Mean Corpuscular Hemoglobin 29 pg (25-35) Mean Corpuscular Hemoglobin Concent 34 g/dL (31-37) Red Cell Distribution Width 13.0 % (11.5-14.5) Platelet Count 199 x10^3/uL (140-400) Neutrophils (%) (Auto) 52 % (31-73) Lymphocytes (%) (Auto) 33 % (24-48) Monocytes (%) (Auto) 13 % (0-9) Eosinophils (%) (Auto) 3 % (0-3) Basophils (%) (Auto) 1 % (0-3) Neutrophils # (Auto) 2.8 x10^3/uL (1.8-7.7) Lymphocytes # (Auto) 1.8 x10^3/uL (1.0-4.8) Monocytes # (Auto) 0.7 x10^3/uL (0.0-1.1) Eosinophils # (Auto) 0.1 x10^3/uL (0.0-0.7) Basophils # (Auto) 0.0 x10^3/uL (0.0-0.2) Sodium Level 139 mmol/L (136-145) Potassium Level 3.6 mmol/L (3.5-5.1) Chloride Level 103 mmol/L (98-107) Carbon Dioxide Level 32 mmol/L (21-32) Anion Gap 4 (6-14) Blood Urea Nitrogen 16 mg/dL (8-26) Creatinine 0.8 mg/dL (0.7-1.3) Estimated GFR (Cockcroft-Gault) 120.9 BUN/Creatinine Ratio 20 (6-20) Glucose Level 83 mg/dL (70-99) Calcium Level 8.9 mg/dL (8.5-10.1) Total Bilirubin 0.7 mg/dL (0.2-1.0) Aspartate Amino Transf (AST/SGOT) 21 U/L (15-37) Alanine Aminotransferase (ALT/SGPT) 41 U/L (16-63) Alkaline Phosphatase 55 U/L (46-116) Total Protein 7.7 g/dL (6.4-8.2) Albumin 3.7 g/dL (3.4-5.0) Albumin/Globulin Ratio 0.9 (1.0-1.7) BLOOD CULTURE Preliminary NO GROWTH AFTER 1 DAY Allergies: Coded Allergies: Penicillins (Verified Allergy, Severe, Swelling, 10/29/21) Medications: Current Medications Medications (Trade) Dose Ordered Sig/Leonie Route PRN Reason Start Time Stop Time Status Last Admin Dose Admin Amino Acids/ Electrolytes/ Dextrose 1,000 ml @ 70 mls/hr [id number] IV 10/30/21 17:30 10/31/21 07:23 Imaging: Imaging: Abd US 10/29/21 IMPRESSION: 1. Prominent distention of the gallbladder and mild sludge within the ga llbladder. No gallstones evident. No inflammatory changes of the gallbladder evident. 2. No biliary ductal dilatation. 3. Increased liver echogenicity likely representing steatosis. HIDA 10/30/21 IMPRESSION: 1. Normal visualization the gallbladder. 2. Low normal ejection fraction at [address] A/P 01/2021 IMPRESSION: 1. No pulmonary embolus identified within the main, lobar or segmental pulmonary arteries. 2. Mild diffuse hepatic steatosis. 3. Gallbladder is mildly distended. Correlate with symptomatology to determine the need for further evaluation with ultrasound. PE: GEN: NAD HEENT: Atraumatic, PERRL LUNGS: CTAB HEART: RRR ABD: NABS, S/ND, epigastric and RUQ discomfort EXTREMITY: No edema SKIN: No rashes, no jaundice NEURO/PSYCH: A & O 3 A/P: A/P: Chronic/recurrent upper abdominal pain GB distention and sludge, borderline low EF Leukocytosis, lactic acidosis - resolved Low A/G Heartburn CRC screen - average risk Hepatic steatosis H/o alcohol misuse - last drink ~1 week ago COVID negative -- Agree w/ continued avoidance of alcohol. Encouraged healthy lifestyle/diet. Normal LFTs and plt. Check INR for completeness. Follow-up w/ surgery as outpt re: cholecystectomy. Offered treatment for heartburn - he's not too interested - will add PPI if he'll take. Consider outpt EGD as well. Okay w/ GI to [facility] per primary. ?truly having diarrhea - consider stool studies if so. D/w Dr. Dugan. POLO RIVERA MD 10/31/21 1324: EDMUND MON Oct 31, 2021 09:28 POLO RIVERA MD Oct 31, 2021 13:24
[2021-10-31 11:00] VITALS: BP 150/68
[2021-10-31] MEDS ORDERED: PANTOPRAZOLE 40 MG TABLET.DR. PO SCH (11:30)
[2021-10-31 11:35] LABS: PROTHROMBIN TIME PATIENT 13.2 SEC (11.7-14.0)
[2021-10-31] MEDS ORDERED: PANT40TA77 PO ×2 (12:10→14:40)
--- NOTE | 2021-10-31 12:26 | PDOC ---
[employer] PROGRESS NOTE Date of Service DOS: DATE: 10/31/21 TIME: 12:19 Chief Complaint Chief Complaint Abdominal Pain History of Present Illness History of Present Illness 10/31/2021: Patient seen and examined. Chart reviewed. Discussed with RN. Patient cooperative, with mildly flat affect. Patient expressed that he wants to eat. Patient resting in bed, desiring discharge. Lactic acid has decreased to WNL today. Aunt's notes on the whiteboard in patient's room were viewed. Vitals/I&O Vitals/I&O: Vital Signs Date Time Temp Pulse Resp B/P (MAP) Pulse Ox O2 Delivery O2 Flow Rate FiO2 10/31/21 07:25 Room Air 10/31/21 07:00 99.0 73 16 138/72 (94) 95 99.0 I & O 10/30/21 10/30/21 10/31/21 15:00 23:00 07:00 Output Total 400 ml Balance -400 ml Physical Exam General: Alert, Oriented X3, Cooperative, No acute distress, mild distress Abdomen: Soft, Other (TTP RUQ) Extremities: No clubbing, No cyanosis Skin: No rashes, No breakdown Labs Labs: Laboratory Tests Test 10/30/21 13:10 10/31/21 06:35 10/31/21 11:10 Lactic Acid Level 1.7 mmol/L (0.4-2.0) White Blood Count 5.5 x10^3/uL (4.0-11.0) Red Blood Count 5.19 x10^6/uL (4.30-5.70) Hemoglobin 15.3 g/dL (13.0-17.5) Hematocrit 44.4 % (39.0-53.0) Mean Corpuscular Volume 86 fL (79-100) Mean Corpuscular Hemoglobin 29 pg (25-35) Mean Corpuscular Hemoglobin Concent 34 g/dL (31-37) Red Cell Distribution Width 13.0 % (11.5-14.5) Platelet Count 199 x10^3/uL (140-400) Neutrophils (%) (Auto) 52 % (31-73) Lymphocytes (%) (Auto) 33 % (24-48) Monocytes (%) (Auto) 13 % (0-9) Eosinophils (%) (Auto) 3 % (0-3) Basophils (%) (Auto) 1 % (0-3) Neutrophils # (Auto) 2.8 x10^3/uL (1.8-7.7) Lymphocytes # (Auto) 1.8 x10^3/uL (1.0-4.8) Monocytes # (Auto) 0.7 x10^3/uL (0.0-1.1) Eosinophils # (Auto) 0.1 x10^3/uL (0.0-0.7) Basophils # (Auto) 0.0 x10^3/uL (0.0-0.2) Sodium Level 139 mmol/L (136-145) Potassium Level 3.6 mmol/L (3.5-5.1) Chloride Level 103 mmol/L (98-107) Carbon Dioxide Level 32 mmol/L (21-32) Anion Gap 4 (6-14) Blood Urea Nitrogen 16 mg/dL (8-26) Creatinine 0.8 mg/dL (0.7-1.3) Estimated GFR (Cockcroft-Gault) 120.9 BUN/Creatinine Ratio 20 (6-20) Glucose Level 83 mg/dL (70-99) Calcium Level 8.9 mg/dL (8.5-10.1) Total Bilirubin 0.7 mg/dL (0.2-1.0) Aspartate Amino Transf (AST/SGOT) 21 U/L (15-37) Alanine Aminotransferase (ALT/SGPT) 41 U/L (16-63) Alkaline Phosphatase 55 U/L (46-116) Total Protein 7.7 g/dL (6.4-8.2) Albumin 3.7 g/dL (3.4-5.0) Albumin/Globulin Ratio 0.9 (1.0-1.7) Prothrombin Time 13.2 SEC (11.7-14.0) Prothromb Time International Ratio 1.0 (0.8-1.1) Assessment and Plan Assessmemt and Plan Problems Medical Problems: (1) Gallbladder sludge Status: Acute (2) Nausea and vomiting Status: Acute (3) Right upper quadrant abdominal pain Status: Acute ASSESSMENT: Symptomatic gallbladder sludge Heavy alcohol use PLAN: 1. IV fluids 2. Advance diet as tolerated 3. IV antibiotics, Mefoxin 4. Consult GI 5. Continue PRN pain and nausea medications 6. Continue home medications 7. Discharge to home when cleared by GI and General Surgery 8. Follow-up with PCP outpatient to assess for future possible cholecystectomy. 9. DVT prophylaxis 10. Trend labs 11. Encourage PO intake 12. Full code The patient has been admitted. We are giving him IV fluids, p.r.n. nausea meds. Consult General Surgery, consult GI. Home meds. DVT prophylaxis. Full code. Comment Review of Relevant I have reviewed the following items izaiah (where applicable) has been applied. Medications: Current Medications Medications (Trade) Dose Ordered Sig/Leonie Route PRN Reason Start Time Stop Time Status Last Admin Dose Admin Amino Acids/ Electrolytes/ Dextrose 1,000 ml @ 70 mls/hr [id number] IV 10/30/21 17:30 10/31/21 07:23 Pantoprazole Sodium (Protonix) 40 mg DAILYAC PO 10/31/21 11:30 10/31/21 10:50 Justifications for Admission Other Justification JO ANN RALPH III DO Oct 31, 2021 12:26
--- NOTE | 2021-10-31 13:14 | DS ---
DATE OF DISCHARGE: 10/31/2021 ADMITTING DIAGNOSIS: Biliary colic. DISCHARGE DIAGNOSES: Resolving biliary colic and heavy alcohol abuse, gallbladder sludge. HOSPITAL COURSE: The patient is a pleasant middle-aged male who presented with biliary colic. He also drinks a lot. He drinks black spiced rum. We consulted GI and General Surgery. It is felt that he probably has symptomatic biliary sludge, but also has a fatty liver from drinking too much. Today, I saw and examined him. He is doing well and wants to go home. He states he is going to quit drinking. We plan to discharge. He is going to follow up with the subspecialist as an outpatient. DISPOSITION: Home. ACTIVITY: As tolerated. DIET: Low sodium. DISCHARGE MEDICATIONS: Please see the MRAD. P.r.n. Zofran and Protonix 40 a day. TOTAL TIME: [address] SOCO[facility]DWAIN DR: Fela TID: [id number]
--- NOTE | 2021-10-31 13:48 | PDOC ---
SURGICAL PROGRESS NOTE DATE: 10/31/21 TIME: 13:47 Subjective improved taking some lunch Vital Signs Vital Signs Date Time Temp Pulse Resp B/P (MAP) Pulse Ox O2 Delivery O2 Flow Rate FiO2 10/31/21 11:00 99.1 76 20 150/68 (95) 97 Room Air 99.1 I&O Intake and Output 10/31/21 07:00 Output Total 400 ml Balance -400 ml Output Urine Total 400 ml # Voids 2 General: Alert, Cooperative Abdomen: Soft, No tenderness Labs Laboratory Tests Test 10/30/21 00:20 10/30/21 05:40 10/30/21 08:15 10/30/21 09:30 White Blood Count 14.0 x10^3/uL (4.0-11.0) Red Blood Count 5.97 x10^6/uL (4.30-5.70) Hemoglobin 17.4 g/dL (13.0-17.5) Hematocrit 50.0 % (39.0-53.0) Mean Corpuscular Volume 84 fL (79-100) Mean Corpuscular Hemoglobin 29 pg (25-35) Mean Corpuscular Hemoglobin Concent 35 g/dL (31-37) Red Cell Distribution Width 13.2 % (11.5-14.5) Platelet Count 236 x10^3/uL (140-400) Neutrophils (%) (Auto) 91 % (31-73) Lymphocytes (%) (Auto) 4 % (24-48) Monocytes (%) (Auto) 5 % (0-9) Eosinophils (%) (Auto) 0 % (0-3) Basophils (%) (Auto) 0 % (0-3) Neutrophils # (Auto) 12.7 x10^3/uL (1.8-7.7) Lymphocytes # (Auto) 0.5 x10^3/uL (1.0-4.8) Monocytes # (Auto) 0.7 x10^3/uL (0.0-1.1) Eosinophils # (Auto) 0.0 x10^3/uL (0.0-0.7) Basophils # (Auto) 0.0 x10^3/uL (0.0-0.2) Segmented Neutrophils % 87 % (35-66) Band Neutrophils % 3 % (0-9) Lymphocytes % 6 % (24-48) Monocytes % 4 % (0-10) Toxic Vacuolation Slight Platelet Estimate Adequate (ADEQUATE) Sodium Level 143 mmol/L (136-145) Potassium Level 4.9 mmol/L (3.5-5.1) Chloride Level 103 mmol/L (98-107) Carbon Dioxide Level 26 mmol/L (21-32) Anion Gap 14 (6-14) Blood Urea Nitrogen 15 mg/dL (8-26) Creatinine 1.1 mg/dL (0.7-1.3) Estimated GFR (Cockcroft-Gault) 83.7 BUN/Creatinine Ratio 14 (6-20) Glucose Level 120 mg/dL (70-99) Calcium Level 9.5 mg/dL (8.5-10.1) Total Bilirubin 1.1 mg/dL (0.2-1.0) Aspartate Amino Transf (AST/SGOT) 20 U/L (15-37) Alanine Aminotransferase (ALT/SGPT) 55 U/L (16-63) Alkaline Phosphatase 71 U/L (46-116) Total Protein 8.8 g/dL (6.4-8.2) Albumin 4.4 g/dL (3.4-5.0) Albumin/Globulin Ratio 1.0 (1.0-1.7) Lipase 70 U/L (73-393) Ethyl Alcohol Level < 10 mg/dL (0-10) Lactic Acid Level 2.4 mmol/L (0.4-2.0) Urine Collection Type Unknown Urine Color Yellow Urine Clarity Clear Urine pH 5.5 (<5.0-8.0) Urine Specific [place] >=1.030 (1.000-1.030) Urine Protein 30 mg/dL (NEG-TRACE) Urine Glucose (UA) Negative mg/dL (NEG) Urine Ketones (Stick) Trace mg/dL (NEG) Urine Blood Negative (NEG) Urine Nitrite Negative (NEG) Urine Bilirubin Negative (NEG) Urine Urobilinogen Dipstick 0.2 mg/dL (0.2 mg/dL) Urine Leukocyte Esterase Negative (NEG) Urine RBC Occ /HPF (0-2) Urine WBC Occ /HPF (0-4) Urine Squamous Epithelial Cells Few /LPF Urine Bacteria Few /HPF (0-FEW) Urine Opiates Screen Pos (NEG) Urine Methadone Screen Neg (NEG) Urine Barbiturates Neg (NEG) Urine Phencyclidine Screen Neg (NEG) Urine Amphetamine/Methamphetamine Neg (NEG) Urine Benzodiazepines Screen Neg (NEG) Urine Cocaine Screen Neg (NEG) Urine Cannabinoids Screen Neg (NEG) Urine Ethyl Alcohol Neg (NEG) SARS-CoV-2 RNA (NEHEMIAH) Negative (Negative) SARS-CoV-2 Antigen (Rapid) Negative (NEGATIVE) Test 10/30/21 13:10 10/31/21 06:35 10/31/21 11:10 Lactic Acid Level 1.7 mmol/L (0.4-2.0) White Blood Count 5.5 x10^3/uL (4.0-11.0) Red Blood Count 5.19 x10^6/uL (4.30-5.70) Hemoglobin 15.3 g/dL (13.0-17.5) Hematocrit 44.4 % (39.0-53.0) Mean Corpuscular Volume 86 fL (79-100) Mean Corpuscular Hemoglobin 29 pg (25-35) Mean Corpuscular Hemoglobin Concent 34 g/dL (31-37) Red Cell Distribution Width 13.0 % (11.5-14.5) Platelet Count 199 x10^3/uL (140-400) Neutrophils (%) (Auto) 52 % (31-73) Lymphocytes (%) (Auto) 33 % (24-48) Monocytes (%) (Auto) 13 % (0-9) Eosinophils (%) (Auto) 3 % (0-3) Basophils (%) (Auto) 1 % (0-3) Neutrophils # (Auto) 2.8 x10^3/uL (1.8-7.7) Lymphocytes # (Auto) 1.8 x10^3/uL (1.0-4.8) Monocytes # (Auto) 0.7 x10^3/uL (0.0-1.1) Eosinophils # (Auto) 0.1 x10^3/uL (0.0-0.7) Basophils # (Auto) 0.0 x10^3/uL (0.0-0.2) Sodium Level 139 mmol/L (136-145) Potassium Level 3.6 mmol/L (3.5-5.1) Chloride Level 103 mmol/L (98-107) Carbon Dioxide Level 32 mmol/L (21-32) Anion Gap 4 (6-14) Blood Urea Nitrogen 16 mg/dL (8-26) Creatinine 0.8 mg/dL (0.7-1.3) Estimated GFR (Cockcroft-Gault) 120.9 BUN/Creatinine Ratio 20 (6-20) Glucose Level 83 mg/dL (70-99) Calcium Level 8.9 mg/dL (8.5-10.1) Total Bilirubin 0.7 mg/dL (0.2-1.0) Aspartate Amino Transf (AST/SGOT) 21 U/L (15-37) Alanine Aminotransferase (ALT/SGPT) 41 U/L (16-63) Alkaline Phosphatase 55 U/L (46-116) Total Protein 7.7 g/dL (6.4-8.2) Albumin 3.7 g/dL (3.4-5.0) Albumin/Globulin Ratio 0.9 (1.0-1.7) Prothrombin Time 13.2 SEC (11.7-14.0) Prothromb Time International Ratio 1.0 (0.8-1.1) Laboratory Tests Test 10/31/21 06:35 10/31/21 11:10 White Blood Count 5.5 x10^3/uL (4.0-11.0) Red Blood Count 5.19 x10^6/uL (4.30-5.70) Hemoglobin 15.3 g/dL (13.0-17.5) Hematocrit 44.4 % (39.0-53.0) Mean Corpuscular Volume 86 fL (79-100) Mean Corpuscular Hemoglobin 29 pg (25-35) Mean Corpuscular Hemoglobin Concent 34 g/dL (31-37) Red Cell Distribution Width 13.0 % (11.5-14.5) Platelet Count 199 x10^3/uL (140-400) Neutrophils (%) (Auto) 52 % (31-73) Lymphocytes (%) (Auto) 33 % (24-48) Monocytes (%) (Auto) 13 % (0-9) Eosinophils (%) (Auto) 3 % (0-3) Basophils (%) (Auto) 1 % (0-3) Neutrophils # (Auto) 2.8 x10^3/uL (1.8-7.7) Lymphocytes # (Auto) 1.8 x10^3/uL (1.0-4.8) Monocytes # (Auto) 0.7 x10^3/uL (0.0-1.1) Eosinophils # (Auto) 0.1 x10^3/uL (0.0-0.7) Basophils # (Auto) 0.0 x10^3/uL (0.0-0.2) Sodium Level 139 mmol/L (136-145) Potassium Level 3.6 mmol/L (3.5-5.1) Chloride Level 103 mmol/L (98-107) Carbon Dioxide Level 32 mmol/L (21-32) Anion Gap 4 (6-14) Blood Urea Nitrogen 16 mg/dL (8-26) Creatinine 0.8 mg/dL (0.7-1.3) Estimated GFR (Cockcroft-Gault) 120.9 BUN/Creatinine Ratio 20 (6-20) Glucose Level 83 mg/dL (70-99) Calcium Level 8.9 mg/dL (8.5-10.1) Total Bilirubin 0.7 mg/dL (0.2-1.0) Aspartate Amino Transf (AST/SGOT) 21 U/L (15-37) Alanine Aminotransferase (ALT/SGPT) 41 U/L (16-63) Alkaline Phosphatase 55 U/L (46-116) Total Protein 7.7 g/dL (6.4-8.2) Albumin 3.7 g/dL (3.4-5.0) Albumin/Globulin Ratio 0.9 (1.0-1.7) Prothrombin Time 13.2 SEC (11.7-14.0) Prothromb Time International Ratio 1.0 (0.8-1.1) Problem List Problems Medical Problems: (1) Gallbladder sludge Status: Acute (2) Nausea and vomiting Status: Acute (3) Right upper quadrant abdominal pain Status: Acute Assessment/Plan improved low fat diet alcohol cessation, FU as outpt Justicifation of Admission Dx: Justifications for Admission: Justification of Admission Dx: Yes Comments: SUZANNE Estrada APRN Oct 31, 2021 13:48
--- NOTE | 2021-10-31 14:21 | NUR ---
Pt left unit at 1420 by ambulation via private vehicle, accompanied by friend. Pt's IV removed without complication, VSS. Discharge paperwork discussed and sent with pt. Additional questions addressed.
== END 2021-10-31 14:27 | disposition home or self-care (01) | DRG 446 ==
LOC: ER 22:14 → 5 SOUTH 10-30 02:14
PROVIDERS: ADMIT Internal Medicine; ATTEND Internal Medicine
DX: K82.8 Other specified diseases of gallbladder (principal); F10.10 Alcohol abuse, uncomplicated; F32.A Depression, unspecified; F41.9 Anxiety disorder, unspecified; K76.0 Fatty (change of) liver, not elsewhere classified; K81.9 Cholecystitis, unspecified; Z83.3 Family history of diabetes mellitus; Z88.0 Allergy status to penicillin; Z90.49 Acquired absence of other specified parts of digestive tract
CPT/HCPCS: 36415; 76705; 78227; 80053; 80307; 81001; 83605; 83690; 85007; 85025; 85610; 87040; 87426; 90471; 90686; 96361; 96374; 96375; A9537; G0480; J0694; J2270; J2405; J3010; J3490; J7030; U0003; U0005; 99285-25; G0378